=== PATIENT | male | born 1945 ===

== ENCOUNTER 2018-02-28 11:17 | Outpatient (CLI) | payer OTHER ==
[~2018-02-28 11:17] MED LIST: CLOPIDOGREL BIS75 MG; DONEPEZIL HCL5 MG; GLIMEPIRIDE2 MG; SEPTRA DS TABLE1 TAB; SIMVASTATIN20 MG
== END 2018-02-28 11:30 | disposition home or self-care (01) ==
LOC: RAD 11:17 → MAMO-SONO 11:45
DX: M12.89 Other specific arthropathies, not elsewhere classified, multiple sites (principal); M19.90 Unspecified osteoarthritis, unspecified site